=== PATIENT | female | born 1985 | race African-American/Black ===

== ENCOUNTER 2019-12-24 09:36 | Emergency (ER) | payer BC ==
[2019-12-24] MEDS ORDERED: Ketorolac Tromethamine 30 MG/ML VIAL ONE (09:54)
[2019-12-24 10:13] LABS: #Basophils 0.1 thou/uL (0.0-0.2); #Eosinphils 0.1 thou/uL (0.0-0.7); #Lymphocytes 2.2 thou/uL (1.20-3.40); #Monocytes 0.4 thou/uL (0.11-0.59); #Neutrophils 2.5 thou/uL (1.40-6.50); %Basophils 1.3 % (0.0-1.0); %Eosinophils 1.6 % (0.0-10.0); %Lymphocytes 41.6 % (21.0-51.0); %Monocytes 7.5 % (0.0-10.0); %Neutrophils 48.1 % (42.0-75.0); Hemoglobin 14.7 g/dL (12.0-16.0); Mean Corpuscular HGB CONC 33.6 g/dL (32.0-36.0); Mean Corpuscular Hemoglobin 30.9 pg (27.0-31.0); Mean Platelet Volume 7.4 fL (7.4-10.4); Platelet Count 228 thou/uL (130-400); RBC Distribution Width 12.6 % (11.5-14.5); Red Blood Cell (RBC) Count 4.76 mill/uL (4.20-5.40); White Blood Cell (WBC) Count 5.2 thou/uL (4.8-10.8)
[2019-12-24 10:29] LABS: ALT (SGPT) 8 U/L (8-55); AST (SGOT) 11 U/L (5-34); Albumin 4.7 g/dL (3.5-5.0); Alkaline Phosphatase 108 U/L (40-110); Anion Gap 12 mmol/L (10-20); BUN (Urea Nitrogen) 5 mg/dL (7.0-18.7); Bilirubin, Total 0.6 mg/dL (0.2-1.2); Calc. Creatinine Clearance 0 mL/min (70-130); Calcium 9.6 mg/dL (7.8-10.44); Carbon Dioxide 25 mmol/L (22-29); Chloride 104 mmol/L (98-107); Estimated GFR-MDRD Greater than 90; Globulin 3.1 g/dL (2.4-3.5); Glucose 103 mg/dL (70-105); Lipase 28 U/L (8-78); Potassium 3.5 mmol/L (3.5-5.1); Protein, Total 7.8 g/dL (6.0-8.3); Sodium 137 mmol/L (136-145)
[2019-12-24 10:32] LABS: BHCG - Serum Negative (NEGATIVE); Pregs Control Background? CLEAR/WHITE (CLR/WHITE); Pregs Control Bar Appear? YES (CONTROL BAR)
[2019-12-24 10:33] LABS: Bilirubin Negative (Negative); Blood, Urine Negative (Negative); Clarity Turbid (Clear); Glucose, Urine (Dipstick) Normal (Negative); Leukocyte Negative Leu/uL (Negative); Nitrite Negative (Negative); Protein, Urine (Dipstick) 20 mg/dL (Neg-Trace); Urobilinogen Normal mg/dL (Less than 2)
--- NOTE | 2019-12-24 11:22 | CT ---
CT ABDOMEN AND PELVIS PERFORMED WITHOUT CONTRAST ENHANCEMENT: Date: 12/24/2019 HISTORY: Abdominal pain. FINDINGS: The lung bases are clear of any infiltrative process. The liver, spleen, pancreas, and gallbladder regions all appear unremarkable. Right and left adrenal glands, and right and left kidneys are normal in size. No obstruction. No madan l calculi. There is no significant periaortic or mesenteric adenopathy noted. CT of pelvis was performed without contrast enhancement. The appendix is normal. Follicles seen invol ving the adnexa. No adenopathy or mass. No significant bony findings. IMPRESSION: Unremarkable CT of the abdomen and pelvis. POS: [facility]
== END 2019-12-24 11:35 | disposition home or self-care (01) ==
LOC: ERS 09:36
DX: R10.30 Lower abdominal pain, unspecified (principal); M19.90 Unspecified osteoarthritis, unspecified site
CPT/HCPCS: 74176; 80053; 81003; 83690; 84703; 85025; 96361; 96374; J1885

== ENCOUNTER 2020-03-25 23:07 | Emergency (ER) | payer SELFPAY ==
[2020-03-25 23:56] LABS: #Basophils 0.1 thou/uL (0.0-0.2); #Eosinphils 0.2 thou/uL (0.0-0.7); #Lymphocytes 3.3 thou/uL (1.20-3.40); #Monocytes 0.4 thou/uL (0.11-0.59); #Neutrophils 3.4 thou/uL (1.40-6.50); %Basophils 1.4 % (0.0-1.0); %Eosinophils 2.4 % (0.0-10.0); %Lymphocytes 44.4 % (21.0-51.0); %Monocytes 5.7 % (0.0-10.0); Hemoglobin 13.4 g/dL (12.0-16.0); Mean Corpuscular HGB CONC 34.2 g/dL (32.0-36.0); Mean Corpuscular Hemoglobin 31.7 pg (27.0-31.0); Mean Corpuscular Volume 92.5 fL (78.0-98.0); Mean Platelet Volume 7.8 fL (7.4-10.4); Platelet Count 236 thou/uL (130-400); RBC Distribution Width 13.4 % (11.5-14.5); Red Blood Cell (RBC) Count 4.23 mill/uL (4.20-5.40); White Blood Cell (WBC) Count 7.5 thou/uL (4.8-10.8)
[2020-03-26 00:52] LABS: Bacteria/HPF None Seen HPF (None Seen); Bilirubin Negative (Negative); Blood, Urine 2+ (Negative); Calcium Oxalate Crystals Rare HPF (None Seen); Clarity Turbid (Clear); Glucose, Urine (Dipstick) Normal (Negative); Ketone, Urine Trace mg/dL (Negative); Leukocyte 25 Leu/uL (Negative); Nitrite Negative (Negative); Protein, Urine (Dipstick) 30 mg/dL (Neg-Trace); Specific Gravity, Urine 1.029 (1.002-1.036); WBC/HPF 0-3 HPF (0-3)
--- NOTE | 2020-03-26 07:12 | ULT ---
FIRST TRIMESTER OBSTETRICAL ULTRASOUND: Date: 03/25/2020 INDICATION: Evaluate for ectopic with positive beta HCG. TECHNIQUE: Lopez scale, color Doppler, and spectral Doppler images were obtained of the pelvis via transabdominal and transvaginal approach. Comparison made with prior pelvic ultrasound dated 04/19/2019. FINDINGS: No intrauterine gestation is demonstrated. The uterus measures 11.7 x 4.6 x 6.8 cm. Endometrial strip e is thickened, measuring 1.3 cm. The left ovary has a normal sonographic appearance and flow. The ri ght ovary demonstrates a mildly complex nonvascular lesion with a peripheral ring of fire measuring 1 .4 cm, suspicious for a corpus luteal cyst. No extrauterine adnexal mass is grossly evident. There is mild free fluid in the pelvis. There is normal flow to the right ovary. IMPRESSION: 1. No intrauterine gestation demonstrated. 2. No definite extrauterine mass identified. 3. There is a 1.4 cm peripherally vascular, heterogeneous lesion within the right adnexa, most suspi cious for a corpus luteal cyst. Ovarian ectopic is felt to be less likely. 4. Mild free fluid in the pelvis. 5. Recommend continued clinical and sonographic follow-up. Findings are consistent with a of undetermined location. Findings may reflect early , missed , or ectopic . POS: [facility]
[2020-03-26 20:05] LABS: Chlamydia by PCR Not Detected (NotDetected); GC by PCR Not Detected (NotDetected)
== END 2020-03-26 01:13 | disposition home or self-care (01) ==
LOC: ERS 23:07
DX: O20.9 Hemorrhage in early pregnancy, unspecified (principal); Z3A.01 Less than 8 weeks gestation of pregnancy; O99.89 Other specified diseases and conditions complicating pregnancy, childbirth and the puerperium; M19.90 Unspecified osteoarthritis, unspecified site
CPT/HCPCS: 36415; 76856; 81003; 81015; 84702; 85025; 86900; 86901; 87480; 87491; 87510; 87591; 87660

== ENCOUNTER 2020-03-28 10:04 | Emergency (ER) | payer SELFPAY ==
--- NOTE | 2020-03-28 13:19 | ULT ---
ULTRASOUND TRANSVAGINAL DOPPLER DUPLEX: DATE: 03/28/2020 HISTORY: Follow-up abnormal ultrasound for possible ectopic . COMPARISON: 03/26/2020 TECHNIQUE: endovaginal transducer used to visualize intrapelvic contents with grayscale, color-flow, and spectra l analysis. FINDINGS: Endometrial stripe is again thickened and heterogeneous, approximately 1.9 cm (19 mm). No intrauterine gestational sac identified. No significant free fluid identified within pelvic cavity. Normal left ovary. Right ovary is measured as approximately 2.3 x 1.8 x 1.6 cm. At the upper portion of the right ovary, there is an approximately 1.8 x 1.8 x 1.7 cm ill-defined mix ed intermediate and low echogenicity lesion of uncertain etiology. Perhaps this is a collapsed hemorrhagic ovarian cyst. Ectopic is not completely excluded. However, this is unchanged si nce prior study. At the inferior portion of the right ovary, either external to it and abutting the ovary, or within t he ovarian parenchyma itself, there is an approximately 0.9 x 0.6 x 0.6 cm lesion with moderately hyperechoic rim and heterogeneously mildly hypoechoic center. This was not identified on the prior ul trasound. It may or may not represent a small ectopic . No embryonic pole is visualized within it. IMPRESSION: 1) the lesion at the upper portion of the right ovarian parenchyma is unchanged since 2 days ago. 2) there is a new lesion either abutting or within the lower portion of the right ovary. Etiology unc ertain. Ectopic is a possibility. 3) recommend continued follow-up.
[2020-03-28 14:13] LABS: #Basophils 0.1 thou/uL (0.0-0.2); #Eosinphils 0.1 thou/uL (0.0-0.7); #Lymphocytes 1.7 thou/uL (1.20-3.40); #Monocytes 0.4 thou/uL (0.11-0.59); #Neutrophils 2.8 thou/uL (1.40-6.50); %Basophils 1.4 % (0.0-1.0); %Eosinophils 2.8 % (0.0-10.0); %Lymphocytes 33.7 % (21.0-51.0); %Monocytes 7.5 % (0.0-10.0); %Neutrophils 54.7 % (42.0-75.0); Hemoglobin 13.5 g/dL (12.0-16.0); Mean Corpuscular HGB CONC 34.4 g/dL (32.0-36.0); Mean Corpuscular Hemoglobin 31.8 pg (27.0-31.0); Mean Corpuscular Volume 92.5 fL (78.0-98.0); Mean Platelet Volume 8.3 fL (7.4-10.4); Platelet Count 214 thou/uL (130-400); RBC Distribution Width 13.5 % (11.5-14.5); Red Blood Cell (RBC) Count 4.25 mill/uL (4.20-5.40)
[2020-03-28 14:35] LABS: ALT (SGPT) 15 U/L (8-55); AST (SGOT) 16 U/L (5-34); Albumin 4.3 g/dL (3.5-5.0); Alkaline Phosphatase 96 U/L (40-110); Anion Gap 16 mmol/L (10-20); BUN (Urea Nitrogen) 6 mg/dL (7.0-18.7); Bilirubin, Total 0.5 mg/dL (0.2-1.2); Calc. Creatinine Clearance 0 mL/min (70-130); Calcium 8.9 mg/dL (7.8-10.44); Carbon Dioxide 18 mmol/L (22-29); Chloride 107 mmol/L (98-107); Estimated GFR-MDRD Greater than 90; Globulin 2.6 g/dL (2.4-3.5); Glucose 97 mg/dL (70-105); Potassium 3.9 mmol/L (3.5-5.1); Protein, Total 6.9 g/dL (6.0-8.3); Sodium 137 mmol/L (136-145)
--- NOTE | 2020-03-28 15:09 | CON ---
DATE OF CONSULTATION: 03/28/2020 TIME: 1435 hours. INFORMAL (PHONE) CONSULT WITH DR Meena COTA (ER) In brief I talked to Dr. Cota on the phone regarding this patient as I was just finishing a delivery in Labor and Delivery. This patient, per Dr. Cota is a 34-year-old, G5, P3, who is 6 weeks by last menstrual period, who was seen on with Dr. Maryellen Kelly at that time, her beta HCG was 2072. She had some vaginal bleeding at that time. She had some cramping. She was told to follow up in 48 hours, which is today, for possible methotrexate or further evaluation. Today she follows up as scheduled and her beta-hCG is now 304. Her Rh type is Rh positive and her hematocrit is 39. She is in no acute distress according to Dr. Cota. It is important to note that this is a phone consult and I did not see the patient in person as the patient was clinically stable and Dr. Cota was comfortable with this phone consultation and plan. The most likely diagnosis at this time, noting that the patient is clinically stable, with a near normal hematocrit, and a vastly/greatly decreased beta HCG that this was a spontaneous miscarriage early in . Because her beta-hCG dropped 75% in 48 hours, I do not suspect that she needs methotrexate as it may be spontaneously resolving. I did recommend that she has followup in 48 hours at any [facility] or family medicine location for another beta HCG serum test. At this time, Dr. Cota agrees that she does not need a D and C or methotrexate as she is clinically stable and is following a natural course of regression. Job ID: [id number] [facility]
== END 2020-03-28 18:17 | disposition home or self-care (01) ==
LOC: ERS 10:04
DX: O03.9 Complete or unspecified spontaneous abortion without complication (principal)
CPT/HCPCS: 36415; 76856; 80053; 84702; 85025

== ENCOUNTER 2020-11-27 10:32 | Outpatient (CLI) | payer OTHER | END 2020-11-27 10:33 | disposition home or self-care (01) | LOC: BICRAD 10:32 | PROVIDERS: ATTEND Physician Assistant | DX: R76.12 Nonspecific reaction to cell mediated immunity measurement of gamma interferon antigen response without active tuberculosis (principal) | CPT/HCPCS: 71046 ==

== ENCOUNTER 2022-04-27 08:56 | Outpatient (CLI) | payer OTHER | END 2022-04-27 08:57 | disposition home or self-care (01) | LOC: BICULT 08:56 | PROVIDERS: ATTEND Physician Assistant | DX: N93.9 Abnormal uterine and vaginal bleeding, unspecified (principal); D25.9 Leiomyoma of uterus, unspecified; R93.89 Abnormal findings on diagnostic imaging of other specified body structures | CPT/HCPCS: 76856 ==

== ENCOUNTER 2022-05-18 22:57 | Emergency (ER) | payer OTHER ==
[2022-05-19 00:43] LABS: #Basophils 0.1 thou/uL (0.0-0.2); #Eosinphils 0.1 thou/uL (0.0-0.7); #Lymphocytes 1.8 thou/uL (1.20-3.40); #Monocytes 0.8 thou/uL (0.11-0.59); %Basophils 0.7 % (0.0-1.0); %Lymphocytes 18.3 % (21.0-51.0); %Monocytes 8.3 % (0.0-10.0); %Neutrophils 71.8 % (42.0-75.0); Hemoglobin 13.7 g/dL (12.0-16.0); Mean Corpuscular HGB CONC 34.4 g/dL (32.0-36.0); Mean Corpuscular Hemoglobin 31.5 pg (27.0-31.0); Mean Corpuscular Volume 91.6 fL (78.0-98.0); Mean Platelet Volume 7.3 fL (7.4-10.4); Platelet Count 243 thou/uL (130-400); Red Blood Cell (RBC) Count 4.34 mill/uL (4.20-5.40); White Blood Cell (WBC) Count 9.7 thou/uL (4.8-10.8)
[2022-05-19 00:50] LABS: BHCG - Serum Negative (NEGATIVE); Pregs Control Background? CLEAR/WHITE (CLR/WHITE); Pregs Control Bar Appear? YES (CONTROL BAR)
[2022-05-19 00:55] LABS: Bacteria/HPF None Seen HPF (None Seen); Bilirubin Negative (Negative); Blood, Urine Trace (Negative); Clarity Clear (Clear); Glucose, Urine (Dipstick) Normal (Negative); Ketone, Urine Negative (Negative); Leukocyte Negative Leu/uL (Negative); Nitrite Negative (Negative); Protein, Urine (Dipstick) Negative (Neg-Trace); RBC/HPF 0-3 HPF (0-3); Squamous Epithelial 0-3 HPF (0-3); Urobilinogen Normal mg/dL (Less than 2); WBC/HPF 0-3 HPF (0-3)
[2022-05-19 01:02] LABS: ALT (SGPT) 24 U/L (8-55); AST (SGOT) 13 U/L (5-34); Alkaline Phosphatase 91 U/L (40-110); Anion Gap 15 mmol/L (10-20); BUN (Urea Nitrogen) 4 mg/dL (7.0-18.7); Bilirubin, Total 0.4 mg/dL (0.2-1.2); Calc. Creatinine Clearance 0 mL/min (70-130); Calcium 8.6 mg/dL (7.8-10.44); Carbon Dioxide 23 mmol/L (22-29); Chloride 101 mmol/L (98-107); Estimated GFR 119; Globulin 2.8 g/dL (2.4-3.5); Glucose 94 mg/dL (70-105); Protein, Total 6.8 g/dL (6.0-8.3); Sodium 136 mmol/L (136-145)
[2022-05-19 01:12] LABS: Potassium 2.5 mmol/L (3.5-5.1)
[2022-05-19] MEDS ORDERED: Potassium Chloride 20 MEQ/100 ML PREMIX BAG ONE ×2 (01:36→02:21)
[2022-05-19] MEDS ORDERED: Prasugrel 10 MG TAB ONE (01:44)
[2022-05-19] MEDS ORDERED: Pot Chloride/Pot Bicarb/Cit Ac 25 mEq Effervescent Tablet ONE (01:46)
[2022-05-19] MEDS ORDERED: Potassium Bicarbonate/Cit Ac 25 MEQ TAB ONE (01:51)
[2022-05-19] MEDS ORDERED: Potassium Bicarbonate/Cit Ac 25 MEQ TAB PO SCH (02:00)
[2022-05-19] MEDS ORDERED: Ondansetron PF 4 MG/2 ML Vial ONE (02:12)
== END 2022-05-19 02:56 | disposition home or self-care (01) ==
LOC: ERS 22:57
DX: E87.6 Hypokalemia (principal)
CPT/HCPCS: 36415; 80053; 81003; 81015; 84703; 85025; 96374; J2405; J3480

== ENCOUNTER 2022-06-03 19:50 | Emergency (ER) | payer OTHER ==
[2022-06-03] MEDS ORDERED: Ondansetron ODT 4 MG TAB ONE (22:05)
[2022-06-03] MEDS ORDERED: metroNIDAZOLE 250 MG TAB ONE (22:05)
== END 2022-06-03 22:09 | disposition home or self-care (01) ==
LOC: ERS 19:50
DX: A07.1 Giardiasis [lambliasis] (principal); M19.90 Unspecified osteoarthritis, unspecified site
CPT/HCPCS: 99283; Q0162